=== PATIENT | male | born 1950 | race Caucasian/White ===

== ENCOUNTER → 2023-10-19 | Outpatient (CLI) | payer OTHER, SELFPAY ==
--- NOTE | 2023-10-19 10:00 | VDLE_ITS ---
Reason For Study: Hx of DVT, r/o DVT RIGHT LEFT CFV is compressible, spontaneous, phasic, GSV is normal. competent and demonstrates normal CFV is compressible, spontaneous, phasic, augmentation. competent, and demonstrates normal Procedure augmentation. This is a venous duplex using B-mode, color FV is compressible, spontaneous, phasic, flow and spectral Doppler. competent and demonstrates normal Exam performed in department. augmentation. POP V is compressible, phasic, and INCOMPETENT for greater than 1.0 second. T/P Trunk is compressible. PTV is compressible. LT PerV is compressible. VL/Venous Duplex US, Unilateral Interpretation Summary There is no evidence of left lower extremity deep vein thrombosis. Left great s aphenous vein appears patent and compressible segmentally. Incompetent left popliteal vein Normal flow patterns right common femoral vein Ordering Physician: LARISA PORTER Referring Physician: LARISA PORTER Performed By: Diane Barrientos, LETICIA, RVT
== END | disposition home or self-care (01) ==
DX: Z86.718 Personal history of other venous thrombosis and embolism (principal); R20.2 Paresthesia of skin
CPT/HCPCS: 93971